=== PATIENT | male | born 1970 | race Caucasian/White ===

== ENCOUNTER 2020-12-26 06:18 | Day surgery (SDC) | payer OTHER ==
[~2020-12-26] VITALS: Ht 170.2 cm; Wt 71.7 kg
[~2020-12-26 06:18] MED LIST: ACTOS30 MG PO; FARXIGA10 MG PO; HUMALOG100 UNIT/1 SQ; IBU800 MG PO; LANTUS SOL100 UNIT/1 SQ; LISINOPRIL20 MG PO; METFORMIN HCL1000 MG PO; TRULICITY1.5 MG/0.5 INJ
[2020-12-26 07:01] LABS: HEMOGLOBIN 13.1 gm/dl (14.0-17.5); RED BLOOD COUNT 4.56 M/UL (4.20-5.50); WHITE BLOOD COUNT 6.5 K/UL (4.5-11.0)
[2020-12-26 07:10] LABS: BUN/CREATININE RATIO 36 (0-10)
[2020-12-27 05:20] LABS: BUN/CREATININE RATIO 28 (0-10)
[2020-12-28 05:11] LABS: BUN/CREATININE RATIO 20 (0-10)
[2020-12-29] MEDS ORDERED: LEVOFLOXACIN750 MG PO (13:36)
[2020-12-29] MEDS ORDERED: ZYVOX600 MG PO (13:36)
== END 2020-12-29 13:50 ==
LOC: OR 06:18 → M/S 17:40 → OR 12-29 13:50
PROVIDERS: Internal Medicine Infectious Disease; Orthopaedic Surgery; Physician Assistant
DX: M79.89 Other specified soft tissue disorders (principal); I10 Essential (primary) hypertension; E11.65 Type 2 diabetes mellitus with hyperglycemia; E78.5 Hyperlipidemia, unspecified; F15.10 Other stimulant abuse, uncomplicated; F17.210 Nicotine dependence, cigarettes, uncomplicated; Z88.0 Allergy status to penicillin; Z79.4 Long term (current) use of insulin; Z79.899 Other long term (current) drug therapy
CPT/HCPCS: 36415; 80048; 80053; 80202; 82962; 83036; 85025; 85652; 86140; 87070; 87077; 87186; 87205; J1170; J1885; J1956; J2001; J2250; J2704; J3010; J3370; J7030; J7070; J7120